=== PATIENT | male | born 1990 | race African-American/Black ===

== ENCOUNTER 2017-08-07 12:57 | Emergency (ER) | payer SELFPAY ==
[~2017-08-07] VITALS: Ht 180.3 cm; Wt 102.0 kg
[2017-08-07 18:07] VITALS: BP 116/61
[2017-08-07] MEDS ORDERED: TETANUS, DIPHTHERIA, PERTUSSIS VAC/PF 0.5ML (>7YR OLD) IM ONE (18:30)
== END 2017-08-07 18:49 | disposition home or self-care (01) ==
LOC: ER 12:57
DX: S41.151A Open bite of right upper arm, initial encounter (principal); R51 Headache; Y04.1XXA Assault by human bite, initial encounter; Y93.89 Activity, other specified; Y92.89 Other specified places as the place of occurrence of the external cause; Y99.8 Other external cause status
CPT/HCPCS: 99283

== ENCOUNTER 2019-04-02 17:24 | Emergency (ER) | payer MEDICAID ==
[~2019-04-02] VITALS: Ht 180.3 cm; Wt 106.0 kg
[2019-04-02 21:24] VITALS: BP 117/62
== END 2019-04-02 21:54 | disposition home or self-care (01) ==
LOC: ER 17:24
DX: R07.9 Chest pain, unspecified (principal); E78.00 Pure hypercholesterolemia, unspecified; D64.9 Anemia, unspecified
CPT/HCPCS: 36415; 71045; 84484; 93005; 99284